=== PATIENT | female | born 1945 | race Caucasian/White ===

== ENCOUNTER 2017-03-16 20:30 | Emergency (ER) | payer MEDICARE, OTHER ==
--- NOTE | ~2017-03-16 | EKG ---
PATIENT: MAXX NICHOLSON UNIT #: [id number] Ventricular Rate: 64 BPM Atrial Rate: 64 BPM P-R Interval: 170 ms QRS Duration: 82 ms Q-T Interval: 412 ms QTC Calculation(Bezet): 425 ms P [place]: 0 degrees Calculated R [place]: -23 degrees Calculated T [place]: 84 degrees Diagnosis Line: Normal sinus rhythm Diagnosis Line: Poor R wave progression questionable lead position Diagnosis Line: or body habitus Diagnosis Line: T wave abnormality, consider lateral ischemia Diagnosis Line: Abnormal ECG Diagnosis Line: No previous ECGs available Diagnosis Line: Confirmed by KAILASH ORTIZ MD ([id number]) on Diagnosis Line: 03/18/2017 4:33:15 PM INTERPRETING MD: BREANN
--- NOTE | ~2017-03-16 | CT4 ---
[facility] A Service of [facility] & [facility] RADIOLOGY TEXT RESULTS PATIENT: MAXX NICHOLSON LOCATION: [facility] : 47 UNIT #: [id number] AGE: [address]: Ramírez Flores MD SEX: F ORDER DR: [id number] [facility] [address] [place], [place] [address] [id number] MR#: [id number] Acc #: [id number] NAME: MAXX NICHOLSON : 1945 SEX: F STUDY DATE/TIME: 03/17/2017 4:10 UNIT: [facility] ROOM: STUDY DESCRIPTION: CT Abd and Pelv Wo Cont Attending Physician: Ramírez Flores M.D. Ordering Physician: Ramírez Flores M.D. Primary Care Physician: Primary Care Physician No MEDICAL IMAGING REPORT This report is preliminary unless electronic signature is present EXAM CT abdomen and pelvis without contrast HISTORY Chronic nausea. New onset weakness today. FINDINGS CT abdomen and pelvis was performed without contrast. This CT exam was performed with one or more of the following radiation dose reduction techniques: automatic exposure control, adjustment of mA and/or kV according to patient size, and iterative reconstruction. CT ABDOMEN: There are several pulmonary nodules in the left lung base, in the lateral and posterior lower lobe, measuring up to 8 mm. These are apparently new compared to prior CT 11/09/2013. Suggest followup CT chest in 6-12 months. Small hiatal hernia. Cholecystectomy. Advanced chronic atrophy of the right kidney with mild compensatory hypertrophy of the left kidney. 3 mm nonobstructing stone in the mid left kidney. No bowel dilatation. no ascites. Bilateral common iliac artery wall stents. No adenopathy. CT PELVIS: No free fluid or inflammatory changes. The uterus and adnexa are unremarkable. The urinary bladder is normal. IMPRESSION 1. No acute findings in the abdomen or pelvis. 2. Marked atrophy of the right kidney and moderate compensatory hypertrophy of the left kidney is unchanged compared to 11/09/2013. 3. 3 mm nonobstructing stone in the mid-left kidney. 4. Multiple pulmonary nodules in the left lung base measure up to [address] chest in 6-12 months is recommended. [facility]. [facility] A Service of [facility] & [facility] RADIOLOGY TEXT RESULTS PATIENT: MAXX NICHOLSON LOCATION: [facility] : 47 UNIT #: [id number] AGE: [address]: Ramírez Flores MD SEX: F ORDER DR: 5. Small hiatal hernia. Dictated by... Rolando Dave M.D. THIS IS AN ELECTRONICALLY VERIFIED REPORT Rolando Dave M.D. at 03/17/2017 6:27 AM BLAIRE/fabio TD: 03/17/2017 04:51 JOB #: [id number] MEDICAL IMAGING REPORT Page 1 of 1 COPY
[~2017-03-16 20:30] MED LIST: ACID CONTROL20 MG PO; ALPRAZOLAM PO; ALPRAZOLAM1 MG PO; ASPIRIN81 M1 PO; ASPIRIN81 M2 PO; COZAAR100 MG PO; CRESTOR PO; DIOVAN PO; FLUOXETINE HCL20 M1 PO; HYDROCODON-ACE1 EAC5 PO; HYZAAR1 TAB 100- PO; LISINOPRIL PO; LORTAB 10-5001 EACH PO; LORTAB 101 TAB 10/5 PO; LORTAB 7.5-5001 TAB PO; METOPROLOL SUC100 MG PO; NEURONTIN800 MG PO; NORCO 5/325 TAB1 TAB PO; NORVASC10 MG PO; PHENERGAN25 MG PO; PLAVIX PO; PROZAC PO; TOPROL XL PO; VIT B-12 PO; VITAMIN B; XANAX1 MG PO; ZANTAC300 MG PO; [UNRECOGNIZED DRUG - OTHER] PO
[2017-03-17 00:46] LABS: BASOPHIL% 0.3 % (0-2.5); DIFF IND NO; EOSINOPHIL# 0.2 X10e3 (0-0.7); HEMATOCRIT 47.8 % (35.0-45.0); HEMOGLOBIN 16.5 gm/dL (12.0-16.0); MEAN CELL VOLUME 94.1 FL (83-96); MEAN CORPUSCULAR HEMOGLOBIN 32.5 PG (28-34); MEAN CORPUSCULAR HGB CONC 34.5 g/dL (30-36); MEAN PLATELET VOLUME 7.9 FL (6.5-11.5); NEUTROPHIL# 4.9 X10e3 (1.5-7.1); NEUTROPHIL% 48.7 % (40-75); PLATELET COUNT 234 X10e3 (140-420); RED BLOOD COUNT 5.08 X10e (3.90-5.30); RED CELL DISTRIBUTION WIDTH 13.1 % (11.0-15.5); WHITE BLOOD COUNT 10.1 X10e3 (4.0-10.5)
[2017-03-17 00:56] LABS: POC - CKMB 5.2 ng/mL (0.0-7.9); POC - TROPONIN 0.07 ng/mL (<=0.05)
[2017-03-17 01:10] LABS: ALBUMIN SERUM 4.6 g/dL (3.5-5.0); BUN/CREATININE RATIO 13.33; CALCIUM SERUM 9.8 mg/dL (8.4-10.2); CREATININE SERUM 1.2 mg/dL (0.6-1.4); GLOM FILT RATE Estimated 45.8 mL/min (>60); POTASSIUM 3.3 mmol/L (3.5-5.1); PROTEIN TOTAL SERUM 8.4 g/dL (6.0-8.3)
[2017-03-17 02:07] LABS: URINE SOURCE CLEAN CATCH
[2017-03-17 02:12] LABS: URINE APPEARANCE CLEAR; URINE BILIRUBIN NEG (NEG); URINE BLOOD NEG (NEG); URINE COLOR YELLOW; URINE GLUCOSE NEG (NEG); URINE KETONE NEG (NEG); URINE LEUKOCYTE ESTERASE TRACE (NEG); URINE NITRATE NEG (NEG); URINE PH 5.5 (5-8); URINE PROTEIN NEG (NEG); URINE SPECIFIC GRAVITY 1.009 (1.003-1.035); URINE UROBILINOGEN 0.2 MG/DL (NEG)
[2017-03-17 02:14] LABS: CULTURE INDICATED? YES; U HYALINE CASTS AUWI 0-2 /[LPF]; URBCS1 AUWI 0-2 /[HPF] (0-2); URINE BACTERIA AUWI 1+ (NEGATIVE); URINE SQUAMOUS EPITHELIAL CELL OCC /[HPF]
[2017-03-17 02:58] LABS: POC - CKMB 3.8 ng/mL (0.0-7.9); POC - TROPONIN 0.05 ng/mL (<=0.05)
== END 2017-03-17 04:40 | disposition home or self-care (01) ==
LOC: CED 20:30
PROVIDERS: Emergency Medicine
DX: E87.6 Hypokalemia (principal); F17.200 Nicotine dependence, unspecified, uncomplicated; Z90.49 Acquired absence of other specified parts of digestive tract
CPT/HCPCS: 36415; 74176; 80053; 81003; 82553; 83690; 84484; 85025; 87086; 93005; 96361; 96374; 96375; 99285; J2405